=== PATIENT | female | born 1975 | race African-American/Black ===

== ENCOUNTER 2020-12-29 18:50 | Emergency (ER) | payer SELFPAY ==
[~2020-12-29] VITALS: Ht 157.5 cm; Wt 71.7 kg
[~2020-12-29 18:50] MED LIST: ACIDOPHILUS1 EAC1 PO; AMLODIPINE BESY10 MG PO; AMLODIPINE BESYL5 MG PO; ASPIR-LOW81 MG PO; CARAFATE1 GM/10 ML PO; CINNAMON500 MG PO; CIPRO500 MG PO; ENALAPRIL PO; FLAGYL250 MG PO; HYDROCORTISONE5 MG PO; LEVAQUIN500 MG PO; METFORMIN HCL1000 MG PO; METFORMIN HCL500 M1 PO; METFORMIN HCL500 MG PO; METOPROLOL TART50 MG PO; MULTIPLE VITAM1 EACH PO; NORVASC5 MG PO; OMEPRAZOLE40 MG PO; PANTOPRAZOLE SO40 MG PO; POTASSIUM CHLO10 ME1 PO; PROGESTERONE100 MG PO; PROMETHAZINE HC25 M1 PO; TYLENOL WITH C1 EACH PO; ULTRAM50 MG PO; VASOTEC10 MG PO
[2020-12-29] MEDS ORDERED: Morphine 2mg Syringe 2 MG/ML SYR IV ONE (19:15)
[2020-12-29] MEDS ORDERED: ONDANSETRON HCL INJ 2MG/ML 2ML 2 MG/ML VIAL IV NR (19:15)
[2020-12-29] MEDS ORDERED: Morphine 4mg Syringe 4 MG/ML INJ ONE (19:30)
[2020-12-29] MEDS ORDERED: ONDANSETRON HCL INJ 2MG/ML 2ML 2 MG/ML VIAL ONE (19:30)
[2020-12-29] MEDS ORDERED: DIPHENHYDRAMINE HCL INJ 50 MG/ML VIAL ONE ×2 (19:48→19:49)
[2020-12-29] MEDS ORDERED: DIPHENHYDRAMINE HCL INJ 50 MG/ML VIAL IV ONE (20:00)
[2020-12-29] MEDS ORDERED: DICYCLOMINE HCL20 MG PO (20:49)
[2020-12-29 21:00] VITALS: BP 140/98
== END 2020-12-29 21:00 | disposition home or self-care (01) ==
LOC: FSED 19:15
DX: R10.33 Periumbilical pain (principal); R19.7 Diarrhea, unspecified; E11.65 Type 2 diabetes mellitus with hyperglycemia; I10 Essential (primary) hypertension; K21.9 Gastro-esophageal reflux disease without esophagitis
CPT/HCPCS: 74176; 80048; 80076; 81003; 85025; 96374; 96375; 96376; 99284; J1200; J2270 ×2; J2405

== ENCOUNTER 2021-01-02 17:54 | Emergency (ER) | payer SELFPAY ==
[~2021-01-02] VITALS: Ht 157.5 cm; Wt 69.9 kg
[~2021-01-02 17:54] MED LIST changes: +DICYCLOMINE HCL20 MG PO
[2021-01-02] MEDS ORDERED: SODIUM CHLORIDE 0.9% 1000ML 1,000 ML IV STA (18:20)
[2021-01-02] MEDS ORDERED: ONDANSETRON HCL INJ 2MG/ML 2ML 2 MG/ML VIAL IV STA (18:20)
[2021-01-02] MEDS ORDERED: KETOROLAC TROMETHAMINE 30 MG/ML VIAL IV STA (18:20)
[2021-01-02] MEDS ORDERED: SODIUM CHLORIDE 0.9% 1000ML 1,000 ML ONE (18:28)
[2021-01-02] MEDS ORDERED: ONDANSETRON HCL INJ 2MG/ML 2ML 2 MG/ML VIAL ONE (18:28)
[2021-01-02] MEDS ORDERED: METHYLPREDNISOLONE SOD SUCC 125 MG/2ML VIAL IV ONE (18:30)
[2021-01-02] MEDS ORDERED: HALOPERIDOL LACTATE 5 MG/ML VIAL IV ONE (18:45)
[2021-01-02] MEDS ORDERED: METHYLPREDNISOLONE SOD SUCC 125 MG/2ML VIAL ONE (19:08)
[2021-01-02] MEDS ORDERED: HALOPERIDOL LACTATE 5 MG/ML VIAL ONE (19:09)
[2021-01-02] MEDS ORDERED: METRONIDAZOLE500 MG PO (20:42)
[2021-01-02] MEDS ORDERED: CIPRO500 MG PO (20:42)
[2021-01-02] MEDS ORDERED: PREDNISONE50 MG PO (20:43)
== END 2021-01-02 21:00 | disposition home or self-care (01) ==
LOC: FSED 18:01
DX: K52.9 Noninfective gastroenteritis and colitis, unspecified (principal); K50.90 Crohn's disease, unspecified, without complications; Z88.8 Allergy status to other drugs, medicaments and biological substances; Z91.041 Radiographic dye allergy status; I10 Essential (primary) hypertension; Z90.49 Acquired absence of other specified parts of digestive tract; M25.512 Pain in left shoulder
CPT/HCPCS: 73020; 74176; 80053; 81003; 85025; 99284; J1630; J2405; J2930; J7030

== ENCOUNTER 2021-04-26 10:20 | Emergency (ER) | payer SELFPAY ==
[~2021-04-26] VITALS: Ht 157.5 cm; Wt 70.5 kg
[~2021-04-26 10:20] MED LIST changes: +METRONIDAZOLE500 MG PO; +PREDNISONE50 MG PO
[2021-04-26] MEDS ORDERED: ONDANSETRON HCL INJ 2MG/ML 2ML 2 MG/ML VIAL IV STA ×2 (11:09→12:47)
[2021-04-26] MEDS ORDERED: GLIMEPIRIDE4 MG (11:15)
[2021-04-26] MEDS ORDERED: SODIUM CHLORIDE 0.9% 1000ML 1,000 ML IV SCH (11:15)
[2021-04-26] MEDS ORDERED: ONDANSETRON HCL INJ 2MG/ML 2ML 2 MG/ML VIAL ONE (12:56)
[2021-04-26] MEDS ORDERED: Morphine 4mg Syringe 4 MG/ML INJ ONE (12:56)
[2021-04-26] MEDS ORDERED: Morphine 4mg Syringe 4 MG/ML INJ IV ONE (13:00)
[2021-04-26] MEDS ORDERED: CYCLOBENZAPRINE10 MG PO (13:46)
== END 2021-04-26 13:52 | disposition home or self-care (01) ==
LOC: FSED 10:25
DX: R10.30 Lower abdominal pain, unspecified (principal); K50.90 Crohn's disease, unspecified, without complications; R11.2 Nausea with vomiting, unspecified; S39.012A Strain of muscle, fascia and tendon of lower back, initial encounter; K21.9 Gastro-esophageal reflux disease without esophagitis; I10 Essential (primary) hypertension
CPT/HCPCS: 74176; 80053; 81003; 85025; 96374; 96375; 96376; 99284; J2270; J2405; J7030

== ENCOUNTER 2022-01-03 14:08 | Emergency (ER) | payer OTHER ==
[~2022-01-03] VITALS: Ht 157.5 cm; Wt 81.2 kg
[~2022-01-03 14:08] MED LIST changes: +CYCLOBENZAPRINE10 MG PO; +GLIMEPIRIDE4 MG
[2022-01-03 17:06] VITALS: BP 120/77
== END 2022-01-03 17:32 | disposition home or self-care (01) ==
LOC: FSED 14:23
DX: R55 Syncope and collapse (principal); I10 Essential (primary) hypertension; E11.9 Type 2 diabetes mellitus without complications; F41.9 Anxiety disorder, unspecified; K21.9 Gastro-esophageal reflux disease without esophagitis; G25.81 Restless legs syndrome; Z87.19 Personal history of other diseases of the digestive system; F17.210 Nicotine dependence, cigarettes, uncomplicated
CPT/HCPCS: 99282

== ENCOUNTER 2023-03-03 12:24 | Emergency (ER) | payer OTHER ==
[~2023-03-03] VITALS: Ht 157.5 cm; Wt 79.4 kg
[~2023-03-03 12:24] MED LIST changes: +ALBUTEROL2.5 MG/3 M INH; +AMOX TR-K CLV1 EAC2 PO; +GUAIFEN-CODEINE5 ML PO; +ONDANSETRON ODT4 MG PO; +PREDNISONE20 MG PO; +PROVENTIL HFA6.7 GM INH
[2023-03-03 12:45] VITALS: O2SAT 99
[2023-03-03] MEDS ORDERED: CEPHALEXIN500 MG PO (13:27)
[2023-03-03] MEDS ORDERED: AMLODIPINE BESY10 MG PO (13:27)
[2023-03-03] MEDS ORDERED: AMLODIPINE BESYLATE 10 MG TAB PO ONE (13:30)
[2023-03-03] MEDS ORDERED: METOPROLOL-HCT1 EAC1 PO (13:30)
[2023-03-03] MEDS ORDERED: AMLODIPINE BESYLATE 10 MG TAB ONE (13:45)
[2023-03-03 13:58] VITALS: BP 160/101
== END 2023-03-03 13:58 | disposition home or self-care (01) ==
LOC: FSED 12:42
DX: H00.034 Abscess of left upper eyelid (principal); I10 Essential (primary) hypertension; K21.9 Gastro-esophageal reflux disease without esophagitis; F41.9 Anxiety disorder, unspecified; G25.81 Restless legs syndrome; Z87.19 Personal history of other diseases of the digestive system
CPT/HCPCS: 99282